=== PATIENT | male | born 1985 | race Two or more races ===

== ENCOUNTER 2020-04-19 15:04 | Emergency (ER) | payer SELFPAY ==
[~2020-04-19] VITALS: Ht 172.7 cm; Wt 77.1 kg
[2020-04-19 15:10] VITALS: BP 127/72
--- NOTE | 2020-04-19 15:10 | NUR ---
ED Nurse Note: Pt brought in by ambulance and with [employer] in handcuffs. Pt is cooperative in the room. A/o/4. Pt is hostile durring assesment and with ER MD. Raising his voice at staff. Per [employer] pt was recently evicted from his home. He returned to his previous address, entered the premises and began verbally egaged with the residents of the home. PER [employer] they called 911 and were hiding in the back bedroom. Placed on a 5150 hold per [employer]. Vitals stable as documented on RA. No signs of distress noted.
--- NOTE | 2020-04-19 15:45 | NUR ---
HAND-OFF: Report given to aurora GOLDBERG
--- NOTE | 2020-04-19 15:50 | NUR ---
ED Nurse Note: pt was moved on to treatment room bed 2, pt on bed, awake and alert, screaming incoherently upon assessment. Pt was maintained on three point restraints, skin intact noted with good circulation, no swelling seen. Pt was reminded the need for urine specimen; unable to provided at this time. safety measures in placed.
[2020-04-19 16:12] LABS: BASOPHILS % (AUTO) 0.8 % (0.0-2.0); EOSINOPHILS % (AUTO) 1.2 % (0.0-3.0); HEMATOCRIT 43.3 % (42.0-52.0); HEMOGLOBIN 14.8 G/DL (14.2-18.0); LYMPHOCYTES % (AUTO) 12.7 % (20.0-45.0); MEAN CORPUSCULAR VOLUME 88 FL (80-99); MONOCYTES % (AUTO) 6.8 % (1.0-10.0); NEUTROPHILS % (AUTO) 78.6 % (45.0-75.0); PLATELET COUNT 297 K/UL (150-450); RED BLOOD COUNT 4.92 M/UL (4.70-6.10); RED CELL DISTRIBUTION WIDTH 13.6 % (11.6-14.8)
[2020-04-19 16:18] LABS: ANION GAP 8 mmol/L (5-15); BLOOD UREA NITROGEN 20 mg/dL (7-18); CARBON DIOXIDE 28 MMOL/L (21-32); CHLORIDE 102 MMOL/L (98-107); SODIUM 138 MMOL/L (136-145)
[2020-04-19 16:22] LABS: ALANINE AMINOTRANSFERASE 35 U/L (12-78); ALBUMIN 3.8 G/DL (3.4-5.0); ALBUMIN/GLOBULIN RATIO 1.1 (1.0-2.7); ALKALINE PHOSPHATASE 64 U/L (46-116); ASPARTATE AMINO TRANSFERASE 27 U/L (15-37); BILIRUBIN,TOTAL 0.4 MG/DL (0.2-1.0)
--- NOTE | 2020-04-19 16:30 | NUR ---
ED Nurse Note: Pt on bed, contiously screaming, uncooperative to care, appears to be restless and agitated. Nurses called security for help.
[2020-04-19] MEDS ORDERED: LORazepam Inj 2mg/ml 1ml IM ONE (18:30)
[2020-04-19] MEDS ORDERED: Haloperidol 5mg/ml Inj IM ONE (18:30)
--- NOTE | 2020-04-19 19:18 | NUR ---
ED Nurse Note: hand off given to enoc dave
--- NOTE | 2020-04-19 19:20 | NUR ---
ED Nurse Note: Report received from YUSUF Casey. Woke patient up. He was reoriented to situation by RN. Patient is calm and cooperative. Instructed patient that a urine sample was needed. No acute distress at this time. He is able to follow directions. No aggressive behavior noted. Patient educated on restraint release, he agreed with plan to release them.
[2020-04-19 19:30] VITALS: BP 135/85
--- NOTE | 2020-04-19 19:30 | NUR ---
ED Nurse Note: ERMD d/c restraints at this time. Patient released from restraints without complication. All extremities CMS is intact. No skin breakdown.
--- NOTE | 2020-04-19 19:45 | NUR ---
ED Nurse Note: Patient is able to follow commands and is cooperative with RN at this time. Urine sample provided bedside using urinal. Sample sent to lab.
[2020-04-19 20:15] LABS: APPEARANCE,URINE CLEAR; BILIRUBIN, URINE NEGATIVE (NEGATIVE); COLOR,URINE AMBER; GLUCOSE, URINE (UA) NEGATIVE (NEGATIVE); KETONES,URINE NEGATIVE (NEGATIVE); LEUKOCYTE ESTERASE ,URINE NEGATIVE (NEGATIVE); NITRITE,URINE NEGATIVE (NEGATIVE); PH,URINE 7 (4.5-8.0); PROTEIN,URINE 1+ (NEGATIVE); UROBILINOGEN,URINE 1 MG/DL (0.0-1.0)
--- NOTE | 2020-04-19 21:50 | NUR ---
ED Nurse Note: Patient is snoring in bed, no signs of acute distress. RN bedside monitoring patient.
--- NOTE | 2020-04-19 23:15 | Emergency Room Report ---
History of Present Illness General Chief Complaint: Behavioral Complaint Source: Patient, EMS, Law Enforcement (Vladislav Garcia MD) Present Illness HPI 34-year-old male presents for behavioral evaluation. Brought in by EMS. Patient was agitated and combative towards family. Brought in by EMS on hold. Denies SI or HI. Denies drug use. No other aggravating relieving factors. Denies any other associated symptoms with (Vladislav Garcia MD) Allergies: Coded Allergies: No Known Allergies (Unverified , 04/19/20) COVID-19 Screening Contact w/high risk pt: No Experienced COVID-19 symptoms?: No COVID-19 Testing performed PLANT PATHOLOGIST: Yes COVID-19 Screening: Negative COVID-19 COVID-19 Testing Source: in half-way last week (Vladislav Garcia MD) Patient History Past Medical History: none Past Surgical History: none Pertinent Family History: none Social History: Denies: smoking, alcohol use, drug use Immunizations: UTD Reviewed Nursing Documentation: PMH: Agreed; PSxH: Agreed (Vladislav Garcia MD) Nursing Documentation-PMH Past Medical History: No Stated History (Vladislav Garcia MD) Review of Systems All Other Systems: negative except mentioned in HPI (Vladislav Garcia MD) Physical Exam Vital Signs Date Time Temp Pulse Resp B/P (MAP) Pulse Ox O2 Delivery O2 Flow Rate FiO2 04/19/20 15:00 99.3 118 18 127/72 (90) 99 Room Air Sp02 EP Interpretation: reviewed, normal General Appearance: no apparent distress, alert, GCS 15, non-toxic Head: normocephalic, atraumatic Eyes: bilateral eye normal inspection, bilateral eye PERRL ENT: hearing grossly normal, normal pharynx, no angioedema, normal voice Neck: full range of motion, supple/symm/no masses Respiratory: chest non-tender, lungs clear, normal breath sounds, speaking full sentences Cardiovascular #1: regular rate, rhythm, no edema Cardiovascular #2: 2+ carotid (R), 2+ carotid (L), 2+ radial (R), 2+ radial (L), 2+ dorsalis pedis (R), 2+ dorsalis pedis (L) Gastrointestinal: normal bowel sounds, non tender, soft, non-distended, no guarding, no rebound Rectal: deferred Genitourinary: normal inspection, no CVA tenderness Musculoskeletal: back normal, normal range of motion, gait/station normal, non- tender Neurologic: alert, motor strength/tone normal, oriented x3, sensory intact, responsive, speech normal Psychiatric: judgement/insight normal, memory normal, mood/affect normal, no suicidal/homicidal ideation, other - agitated/combative Reflexes: 3+ bicep (R), 3+ bicep (L), 3+ tricep (R), 3+ tricep (L), 3+ knee (R), 3+ knee (L) Skin: no rash Lymphatic: no adenopathy (Vladislav Garcia MD) Medical Decision Making Diagnostic Impression: Primary Impression: Behavioral disorder Additional Impression: Substance abuse ER Course Addendum added Patient has been cleared by psychiatrist Dr. Rahman to be discharged (Lm Flores) Chest X-Ray Diagnostic Results Chest X-Ray Diagnostic Results : Chest X-Ray Ordered: Yes # of Views/Limited/Complete: 1 View Indication: Other - leukocytosis EP Interpretation: Yes Interpretation: no consolidation, no effusion, no pneumothorax, no acute cardiopulmonary disease Impression: No acute disease Electronically Signed by: Diane Back MD (Diane Back M.D.) Last Vital Signs Date Time Temp Pulse Resp B/P (MAP) Pulse Ox O2 Delivery O2 Flow Rate FiO2 04/19/20 19:30 85 18 99 Room Air 04/19/20 18:27 138/82 04/19/20 15:10 99.3 (Vladislav Garcia MD) Referrals: NOT CHOSEN IPA/,REFERRING (PCP) Vladislav Garcia MD Apr 19, 2020 23:15 Diane Back M.D. Apr 20, 2020 00:08 Lm Flores Apr 20, 2020 14:30
--- NOTE | 2020-04-20 | NUR ---
ED Nurse Note: Patient is sleeping at this time. RN bedside.
[2020-04-20 01:15] VITALS: BP 135/77
--- NOTE | 2020-04-20 03:00 | NUR ---
ED Nurse Note: Patient is sleeping at this time. Breathing is normal and unlabored. Safety measures met.
[2020-04-20 06:25] VITALS: BP 96/51
--- NOTE | 2020-04-20 07:20 | NUR ---
HAND-OFF: Report given to YUSUF Villasenor.
--- NOTE | 2020-04-20 07:25 | NUR ---
ED Nurse Note: Recived report from aMry
--- NOTE | 2020-04-20 07:30 | NUR ---
ED Nurse Note: lying down on gurney with eyes closed. breathing is even and unlabored.
--- NOTE | 2020-04-20 07:30 | NUR ---
ED Nurse Note: pt does not have IV access
[2020-04-20 08:25] VITALS: BP 124/70
--- NOTE | 2020-04-20 08:38 | NUR ---
ED Nurse Note: Pt placed in white gown again. All clothing in locker #3 with belongings list with clothes. $21 locked in locker in right shoe. pt is awake alert, walks with steay gait. he is calm cooperative and pleasant with staff. PT aware of 5150 educated pt on policy. Denies SI and/or HI.
--- NOTE | 2020-04-20 09:30 | NUR ---
Garrett jones in EDM - 04/20/20 at 1036 by REAGAN ED Nurse Note: lying down on gurney with eyes closed. breathing is even and unlabored.
--- NOTE | 2020-04-20 09:30 | NUR ---
ED Nurse Note: lying down on gurney with eyes closed. breathing is even and unlabored.
[2020-04-20 10:34] VITALS: BP 129/72
--- NOTE | 2020-04-20 10:35 | NUR ---
ED Nurse Note: lying down on gurney with eyes closed. breathing is even and unlabored.
--- NOTE | 2020-04-20 12:52 | NUR ---
Note undone in EDM - 04/20/20 at 1325 by TDDAVISY ED Nurse Note: Pt is pacing and trying to leave. Utilized a employment counselor for [place]. explained and educated on the meaning and uses of a 5150 hold. Explained nessesity and consequences of the 5150 hold written by BRADEN. Pt verbalizes understanding. PT states that he will still try and to leave. Called for security. RN sitter at bedside
--- NOTE | 2020-04-20 14:30 | NUR ---
ED Nurse Note: DR. HANKINS AT THE BEDSIDE AND LIFTED THE HOLD
--- NOTE | 2020-04-20 14:36 | NUR ---
ED Nurse Note: PT is asking how much longer until he can go home. Re-orients easily. Vitals stable as documented. He has been evaluated by the psych provider. No new orders.
--- NOTE | 2020-04-20 14:55 | NUR ---
ED Nurse Note: pt provided home address. Address relayed to registration to add to chart.
[2020-04-20 15:00] VITALS: BP 132/90
--- NOTE | 2020-04-20 15:00 | NUR ---
ER DISCHARGE NOTE: Patient is cleared to be discharged per ERMD, pt is aox4, on room air, with stable vital signs. pt was given dc and prescription instructions, pt was able to verbalize understanding, pt id band and iv site removed without complications. pt is able to ambulate with steady gait. pt took all belongings.
--- NOTE | 2020-04-20 16:00 | Consultation ---
DATE OF CONSULTATION: 04/20/2020 CONSULTING PHYSICIAN: Ash Rahman MD HISTORY OF PRESENT ILLNESS: The patient is a 34-year-old male, who is denying any psychiatric history. He is admitted to the hospital on a 5150. Patient allegedly had used crystal meth. Patient was agitated and placed on a 5150. In our emergency room, patient is calm. Denies any suicidal or homicidal ideation. He is requesting to be discharged. He has been eating food, calm, and had no behavior issues in the ER. Patient received sedatives and now cleared to be discharged. PAST PSYCHIATRIC HISTORY: Denied any psychiatric hospitalization. PAST MEDICAL HISTORY: None. ALLERGIES: No known drug allergies. SUBSTANCE USE HISTORY: Has a history of drug abuse, specifically crystal meth. MENTAL STATUS EXAMINATION: Patient is alert, oriented times self, place, situation, and date. Mood is dysphoric and anxious. Affect is blunted, congruent with mood. Thought process is concrete. Thought content, there is no suicidal or homicidal ideation. Cognition is intact. Insight and judgment is fair. ASSESSMENT: Gilbert I Crystal meth abuse. Gilbert II Deferred. Gilbert III None. Gilbert IV Low. Gilbert V 60. PLAN: 1. Discontinue the 5150. Patient is not an imminent danger to self or others. 2. Patient will be discharged. Ash Rahman M.D. DR: JAROD JOB#: [id number] CC:
--- NOTE | 2020-04-20 16:07 | Diagnostic Imaging Report ---
Indication: Reason For Exam: PAIN Technique: Single AP view of the chest. Comparison: None. Findings: The cardiomediastinal silhouette is within normal limits. There is diffuse bronchial thickening. No airspace consolidation. There are ill-defined patchy left midlung and upper lobe airspace opacities. No pleural effusion or pneumothorax. No acute osseous abnormality. IMPRESSION: Diffuse peribronchial thickening with left midlung and upper lobe airspace opacities which could represent atelectasis in the setting of infectious/inflammatory disease versus atypical/viral pneumonia.
== END 2020-04-20 15:00 | disposition home or self-care (01) ==
LOC: EDBD 15:04 → EMR 15:41
DX: F91.9 Conduct disorder, unspecified (principal); F15.10 Other stimulant abuse, uncomplicated; F12.10 Cannabis abuse, uncomplicated
CPT/HCPCS: 36415; 71045; 80053; 80307; 81003; 85025; 96360; 96372; 99284; G0480; J1630; J7030